=== PATIENT | male | born 1945 | race Caucasian/White ===

== ENCOUNTER 2018-07-03 02:58 | Emergency (ER) | payer BC ==
[~2018-07-03] VITALS: Ht 170.2 cm; Wt 65.8 kg
--- NOTE | 2018-07-03 03:06 | NUR ---
TO BED 4 C/O HIGHBLOOD PRESSURE X1 MONTH WORSE IN THE PAST WEEK. PT WAS RECENTLY STARTED ON BP MEDS BUT DENIES PRIOR HX OF HIGHBLOOD PRESSURE. PT AAOX4 NO ACUTE DISTRESS NOTED, RESP EVEN AND UNLABORED. PT APPEARS MILDLY ANXIOUS. PLACE PT ON CARDIAC MONITORING, CONTINUOUS POX. PENDING ER MD SHARP.
--- NOTE | 2018-07-03 03:15 | NUR ---
POLA YORK AT BEDSIDE TO [facility]A [facility].
[2018-07-03 05:32] VITALS: BP 148/84
--- NOTE | 2018-07-03 05:32 | NUR ---
Patient discharged to home in stable condition. Written and verbal after care instructions given. Patient verbalizes understanding of instruction.
== END 2018-07-03 05:34 | disposition home or self-care (01) ==
LOC: ER 02:59
DX: I10 Essential (primary) hypertension (principal); H53.8 Other visual disturbances; F41.9 Anxiety disorder, unspecified; R94.31 Abnormal electrocardiogram [ECG] [EKG]; Z88.1 Allergy status to other antibiotic agents

== ENCOUNTER 2018-07-07 11:19 | Outpatient (CLI) | payer BC ==
[2018-07-07 11:53] LABS: UREA NITROGEN, BLOOD 21 mg/dL (7-18)
== END 2018-07-07 23:59 | disposition home or self-care (01) ==
LOC: LAB 11:19
DX: H49.21 Sixth [abducent] nerve palsy, right eye (principal)
CPT/HCPCS: 36415; 82565-TC; 84520-TC

== ENCOUNTER 2018-07-09 12:12 | Outpatient (CLI) | payer BC ==
[2018-07-09] MEDS ORDERED: GADODIAMIDE 5 MMOL/10 ML VIAL IJ ONE (12:13)
[2018-07-09] MEDS ORDERED: GADODIAMIDE 2.5 MMOL/5 ML VIAL IJ ONE (12:13)
== END 2018-07-09 23:59 | disposition home or self-care (01) ==
LOC: MRI 12:12
DX: H49.21 Sixth [abducent] nerve palsy, right eye (principal); H57.11 Ocular pain, right eye
CPT/HCPCS: 70542; A9579 ×2